=== PATIENT | male | born 1985 | race Caucasian/White ===

== ENCOUNTER 2017-11-12 16:14 | Observation (INO) ==
[2017-11-12] MEDS ORDERED: KETOROLAC 30 MG/ML VIAL IV ONE (16:46)
[2017-11-12] MEDS ORDERED: ONDANSETRON 4 MG/2 ML VIAL IV ONE (16:46)
[2017-11-12] MEDS ORDERED: 0.9 % SODIUM CHLORIDE 2,000 ML IV ONE (16:46)
--- NOTE | 2017-11-12 16:48 | Emergency Department Note ---
General Adult HPI - General Chief complaint: Cold/Flu Symptoms Stated complaint: Cold/flu Time Seen by Provider: 11/12/17 16:16 Source: patient, family Mode of arrival: ambulatory Limitations: no limitations - History of Present Illness HPI Narrative: 32-year-old male with headache and nausea starting today. Tachycardic into the 130s. He is having some left upper quadrant pain going on for the last 2 weeks but it is worse today. He is also having some shortness of breath and nausea but no vomiting. Denies dysuria or difficulty with a bowel movement. Also notes sore throat initially came in with a temperature 99.6 but while waiting for his exam he suddenly became diaphoretic pale and temperature spike to 102.5. Denies sick exposure. Notes some sore throat - Related Data Home Medications Medication Instructions Recorded Confirmed No Known Home Meds [No Known Home 11/12/17 11/12/17 Meds] Allergies Allergy/AdvReac Type Severity Reaction Status Date / Time bee venom protein (honey bee) Allergy Intermediate Swelling Verified 11/12/17 16 :14 acetaminophen [From Vicodin] Allergy Unknown Unknown Verified 11/12/17 16:14 hydrocodone [From Vicodin] Allergy Unknown Unknown Verified 11/12/17 16:14 Review of Systems All systems ED: reviewed and negative except as stated. Past Medical History - Past Medical History Attestation: Yes: The following information was validated with the patient. Medical history: Reports: hypertension Surgical history ED: Reports: cholecystectomy, orthopedic, other (Knee) - Social History smoking status: Never smoker Alcohol use: Reports: Unknown Drug use: Reports: unknown Physical Exam Diaphoretic ill-appearing male. Normocephalic atraumatic. Conjunctive are clear sclerae white and nonicteric. No nasal discharge or congestion. Oropharynx is pink and moist. Posterior pharynx is clear. Tonsils appear normal +2 bilaterally. No exudate. Neck is supple and nontender without lymphadenopathy thyromegaly. Heart is regular rhythm but tachycardic. Lungs are clear to auscultation bilaterally without wheezes rales or respiratory distress. Abdomen is soft nontender-there is palpation of his left abdomen does not reproduce the pain that he is feeling. No rigidity or guarding. No pedal edema. +2 radial pulse. Alert oriented able to answer questions Limitations: no limitations Course Vital Signs Temperature 99.6 F H 11/12/17 16:14 Pulse Rate 130 H 11/12/17 16:14 Respiratory Rate 20 11/12/17 16:14 Blood Pressure 140/76 11/12/17 16:14 Pulse Oximetry (%) 96 11/12/17 16:14 Temperature 99.4 F H 11/12/17 19:22 Pulse Rate 90 11/12/17 19:02 Respiratory Rate 19 11/12/17 18:01 Blood Pressure 133/89 11/12/17 19:02 Pulse Oximetry (%) 96 11/12/17 19:02 Medical Decision Making - Lab Data Lab results reviewed: Yes I reviewed the patient's lab results. Result diagrams: 11/12/17 16:55 11/12/17 16:54 Lab Results 11/12/17 11/12/17 11/12/17 Range/Units 16:54 16:54 16:55 WBC 11.6 H (4.5-11.0) K/mcL RBC 5.14 (4.50-5.90) M/mcL Hgb 14.9 (13.5-16.5) g/dL Hct 43.7 (41.0-55.0) % POC Hct 43.0 (41.0-55.0) % MCV 85.1 (80.0-100.0) fL MCH 29.1 (26.0-34.0) pg MCHC 34.2 (31.0-36.0) g/dL RDW 13.2 (11.5-14.5) % Plt Count 216 (140-440) K/mcL MPV 9.4 (7.4-10.4) fL Gran % 70.7 (38.0-78.0) % Lymph % (Auto) 15.5 (15.5-49.0) % [place] % (Auto) 13.0 H (1.0-12.0) % Eos % (Auto) 0.5 (0.0-7.0) % Baso % (Auto) 0.3 (0.0-2.0) % Gran # 8.2 H (1.8-8.0) K/mcL Lymph # (Auto) 1.8 (1.5-4.8) K/mcL [place] # (Auto) 1.5 H (0.1-0.9) K/mcL Eos # (Auto) 0.1 (0.0-0.7) K/mcL Baso # (Auto) 0 (0.0-0.3) K/mcL VBG Lactic Acid 1.3 (0.5-2.2) mmol/L POC Sodium 137 (133-145) mmol/L Sodium 135 (133-145) mmol/L POC Potassium 3.5 (3.3-5.1) mmol/L Potassium 3.6 (3.3-5.1) mmol/L POC Chloride 103 (96-108) mmol/L Chloride 99 (96-108) mmol/L Carbon Dioxide 21 L (22-30) mmol/L POC Total CO2 24 (22-30) mmol/L Anion Gap 15.0 (8-16) POC BUN 16 (6-20) mg/dl BUN 14 (6-20) mg/dl Creatinine 1.0 (0.7-1.2) mg/dl POC Creatinine 1.0 (0.7-1.2) mg/dl GFR Calculation 98 Glucose 89 (70-105) mg/dL POC Glucose 95 (70-105) mg/dL Calcium 9.3 (8.6-10.4) mg/dl POC WB Ioniz Calcium 1.05 L (1.16-1.32) mmol/L Total Bilirubin 0.9 (0.0-1.0) mg/dL AST 36 (0-37) U/l ALT 65 H (0-40) U/l Alkaline Phosphatase 65 (39-117) U/L Total Protein 7.6 (5.9-8.4) gm/dL Albumin 4.6 (3.2-5.2) gm/dL Globulin 3.0 (2.2-3.7) gm/dL Albumin/Globulin Ratio 1.5 (1.0-2.3) Amylase 27 L (28-100) U/L Lipase 39 (7-60) U/L - Radiology Data Radiology results reviewed: Yes I reviewed the patient's radiology results. CT scan of the abdomen pelvis with contrast shows focal colitis versus diverticulitis distal sigmoid Disposition Pt seen by MISSIONARY COORDINATOR/PA only: No Clinical Impression: Diverticulitis Summary: Patient is ill-appearing and febrile with tachycardia. Concern for Sirs versus sepsis. Because of his complaint of left-sided abdominal pain we will start with laboratory blood cultures and CT scan. Treatment started with morphine Zofran and IV fluids. Zosyn is ordered He is feeling better after fluids pain medicine and antibiotics. However I am concerned with the high fever and diaphoresis I discussed his situation with Dr. Rakesh Hussein, general surgeon. He agreed to accept patient for inpatient care and surgical evaluation. I will write holding orders continuing the Zosyn, IV fluids, pain management. Disposition: Xfer As Inpt ([facility]) Condition: Fair Referrals: Dorothy Oro ARNP [Primary Care Provider] -
[2017-11-12] MEDS ORDERED: PIPERACILLIN SODIUM/TAZOBACTAM 3.375 GM in DEXTROSE 5% IN WATER 50 ML IV SCH ×2 (17:00→19:45)
[2017-11-12 17:53] LABS: Basophils # (Auto) 0 K/mcL (0.0-0.3); Basophils % (Auto) 0.3 % (0.0-2.0); Eosinophils # (Auto) 0.1 K/mcL (0.0-0.7); Eosinophils % (Auto) 0.5 % (0.0-7.0); Granulocytes % (Auto) 70.7 % (38.0-78.0); Lymphocytes # (Auto) 1.8 K/mcL (1.5-4.8); Lymphocytes % (Auto) 15.5 % (15.5-49.0); Mean Cell Volume 85.1 fL (80.0-100.0); Mean Corpuscular HGB Conc 34.2 g/dL (31.0-36.0); Mean Corpuscular Hemoglobin 29.1 pg (26.0-34.0); Monocytes # (Auto) 1.5 K/mcL (0.1-0.9); Platelet Count 216 K/mcL (140-440); RBC 5.14 M/mcL (4.50-5.90); Red Cell Distribution Width 13.2 % (11.5-14.5)
[2017-11-12 18:10] LABS: ALT/SGPT 65 U/l (0-40); Albumin 4.6 gm/dL (3.2-5.2); Albumin/Globulin Ratio 1.5 (1.0-2.3); Alkaline Phosphatase 65 U/L (39-117); Amylase 27 U/L (28-100); Blood Urea Nitrogen 14 mg/dl (6-20); Lipase 39 U/L (7-60)
--- NOTE | 2017-11-12 19:00 | Cat Scan Report ---
CLINICAL INFORMATION: Left upper quadrant pain COMPARISON: None. TECHNIQUE: Following enteric contrast, 80 cc of Isovue-300 were injected intravenously, and 60 seconds later, 0.625 mm helical slices were obtained from the mid heart through the subtrochanteric regions. Following reconstruction, 2.5 mm sagittal, coronal and axial reformatted images were processed and reviewed at bone, lung and soft tissue windows. Five minutes later, 0.625 mm helical slices were obtained from the mid heart through the kidneys and viewed at soft tissue windows.The exam was performed using radiation dose optimization techniques including, but not limited to, automated exposure control, adjustment of the mA and/or kV according to patient size and use of iterative reconstruction technique. FINDINGS: Lung bases show no abnormality. No effusion. The visualized heart is normal.[id number] Images should the abdomen show the gallbladder is surgically absent. Intrahepatic and common bile ducts are normal CBD is 5 mm. The liver, both kidneys, adrenal glands, spleen, pancreas and aorta including aortic branches are normal in size configuration and attenuation without focal lesion. Images should the pelvis show prostate, seminal vesicles and urinary bladder are normal. There is a 3 cm short segment of descending left colon which demonstrates mild inflammation in the pericolonic fat. The colon is collapsed in this region: there is only minimal wall thickening No definite focal diverticuli. The remainder of the colon, appendix small bowel and stomach are normal. Bone windows show no osseous abnormality IMPRESSION: Mild inflammatory changes confined to a very short segment of the distal left colon. This could represent focal colitis or focal diverticulitis. It does correspond to the location of pain Interpreted and Authenticated by: Cory Celaya 11/12/17
[2017-11-12] MEDS ORDERED: PROMETHAZINE 25 MG/ML VIAL IM PRN (19:31)
[2017-11-12] MEDS ORDERED: ONDANSETRON 4 MG/2 ML VIAL IV PRN (19:31)
[2017-11-12] MEDS ORDERED: IBUPROFEN 600 MG TABLET PO PRN (19:34)
[2017-11-12] MEDS: LACTATED RINGERS 1,000 ML IV SCH (20:55)
[2017-11-12] MEDS: PIPERACILLIN SODIUM/TAZOBACTAM 3.375 GM in DEXTROSE 5% IN WATER 50 ML IV SCH (23:15)
[2017-11-13] MEDS: LACTATED RINGERS 1,000 ML IV SCH ×4 (03:37→22:47)
[2017-11-13] MEDS: PIPERACILLIN SODIUM/TAZOBACTAM 3.375 GM in DEXTROSE 5% IN WATER 50 ML IV SCH ×3 (08:34→22:13)
[2017-11-13] MEDS ORDERED: oxyCODONE HCL 5 MG TABLET PO PRN (13:21)
[2017-11-13] MEDS ORDERED: LORazepam 2 MG/ML VIAL IV PRN (13:21)
--- NOTE | 2017-11-13 13:50 | General Surg History&Physical ---
History of Present Illness Patient information: Note initiated : 11/13/17 at 1:47 pm Service Date, if different from initiated Date: [11/12/17] Patient: Sanjiv Dickinson a 32 y/o M admitted on 11/12/17 for Cold/flu. Chief Complaint: [32-year-old male who is admitted with severe abdominal pain with nausea and fever. The patient states that he has had left upper quadrant pain for 2 weeks which was rather mild. On yesterday he developed severe pain in his left upper quadrant which radiated across his abdomen. He had nausea but no vomiting. He had flatus but no bowel movement. He denied rectal bleeding.. There is a reported temperature of 102.2 in the emergency room but this is not recorded. The patient had mild leukocytosis of 11,000. He has not had similar episodes in the past. Patient is admitted and will be followed closely.. He feels better now. CT scan suggests limited segmental colitis in the distal sigmoid colon but my review of his does not reveal any significant changes in the area of concern.] HPI: Mr. Dickinson is a 32 year old M Review of Systems - Constitutional chills, fatigue, malaise, snoring - EENT Nose, mouth and throat: no mouth lesions, no sinus pain, no sore throat - Cardiovascular no chest pain at rest, no diaphoresis, no palpatations, no rapid heart rate - Respiratory snoring, no wheezing, no stridor, no chest congestion, no pain with cough - Gastrointestinal abdominal pain, cramping, heartburn, nausea, no vomiting - Genitourinary no difficulty urinating, no dysuria, no urinary hesitancy, no urinary incontinence, no urinary urgency - Musculoskeletal arthralgias, myalgias - Integumentary no changing lesions, no new lesions, no pruritus, no rash - Neurological no abnormal hearing, no confusion, no convulsions, no dizziness, no headache(s) , no numbness, no tingling, no tremor(s), no vertigo - Psychiatric no anxiety, no depression, no paranoia - Endocrine fatigue, no palpitations - Hematologic/Lymphatic no easy bleeding, no easy bruising, no lymphadenopathy - Allergic/Immunologic no tongue swelling, no throat swelling, no uticaria, no wheezing, no lip swelling Past History Past medical history: Gastroesophageal reflux disease Hypertension Prior history of pancreatitis Past surgical history: Left knee meniscectomy Cholecystectomy Past family history: Hypertension Coronary artery disease Diabetes mellitus Lung cancer Past social history: Employed Never smoker Occasional alcohol use Denies drug use Medications and Allergies Home Medications Medication Instructions Recorded Confirmed Type No Known Home Meds [No Known Home 11/12/17 11/12/17 History Meds] Allergies Allergy/AdvReac Type Severity Reaction Status Date / Time bee venom protein (honey bee) Allergy Intermediate Swelling Verified 11/12/17 16 :14 acetaminophen [From Vicodin] Allergy Unknown Unknown Verified 11/12/17 16:14 hydrocodone [From Vicodin] Allergy Unknown Unknown Verified 11/12/17 16:14 Exam Temp Pulse Resp BP Pulse Ox 98.7 F 82 18 134/89 95 11/13/17 12:00 11/13/17 12:00 11/13/17 12:00 11/13/17 12:00 11/13/17 12:00 - General physical appearance well developed, well nourished, no distress - Eyes PERRL, normal ocular movement - ENT normal pinna, normal nares, normal mucosa, no hearing loss, no congestion - Head Head exam IM: Present: atraumatic, normocephalic - Neck no masses, no bruits, trachea midline, no lymphadectomy, no venous distension - Cardiovascular Cardiovascular exam IM: Present: normal rate and rhythm - Respiratory normal expansion, normal respiratory effort, clear to percussion, clear to auscultation - Abdomen Abdomen: Present: soft, non tender (abdomen is distended but soft with active bowel sounds there is no tenderness to palpation anywhere in his abdomen.), bowel sounds. Absent: masses, guarding Hernia: Present: none - Genitourinary Present: normal penis with no external lesions - Integumentary Present: no rash, no growths, no abnormal pigmentation - Neurologic Present: normal coordination, normal sensation - Musculoskeletal Present: normal gait, normal posture - Psychiatric Present: oriented to time, oriented to person, oriented to place, speech is normal, memory intact Assessment and Plan (1) Acute abdominal pain in left upper quadrant Dicyclomine 20 mg 4 times daily Status: Acute (2) Segmental colitis Zosyn 3.375 g IV every 6 hours Status: Acute (3) Constipation by delayed colonic transit MiraLAX 4 doses Status: Acute
[2017-11-13] MEDS ORDERED: DICYCLOMINE 20 MG TABLET PO SCH (14:00)
[2017-11-13] MEDS: POLYETHYLENE GLYCOL 3350 17 GM PACKET PO SCH ×2 (14:35→20:57)
[2017-11-13 14:40] LABS: Basophils # (Auto) 0 K/mcL (0.0-0.3); Basophils % (Auto) 0.5 % (0.0-2.0); Eosinophils # (Auto) 0.1 K/mcL (0.0-0.7); Eosinophils % (Auto) 0.9 % (0.0-7.0); Granulocytes % (Auto) 62.8 % (38.0-78.0); Lipase 36 U/L (7-60); Lymphocytes # (Auto) 1.5 K/mcL (1.5-4.8); Lymphocytes % (Auto) 21.3 % (15.5-49.0); Mean Corpuscular HGB Conc 34.6 g/dL (31.0-36.0); Mean Corpuscular Hemoglobin 29.8 pg (26.0-34.0); Monocytes % (Auto) 14.5 % (1.0-12.0); Platelet Count 184 K/mcL (140-440); RBC 4.57 M/mcL (4.50-5.90); Red Cell Distribution Width 13.4 % (11.5-14.5)
[2017-11-13 14:47] LABS: ALT/SGPT 49 U/l (0-40); Albumin/Globulin Ratio 1.5 (1.0-2.3); Alkaline Phosphatase 56 U/L (39-117); Bilirubin,Direct < 0.2 mg/dL (0.0-0.3); Blood Urea Nitrogen 13 mg/dl (6-20); Gamma Glutamyl Transpeptidase 32 U/L (8-61); Uric Acid 7.4 mg/dL (2.5-8.0)
[2017-11-13 15:21] LABS: Erythrocyte Sedimentation Rate 16 mm/hr (0-15)
[2017-11-13] MEDS: PANTOPRAZOLE 40 MG VIAL IV SCH (16:10)
[2017-11-13] MEDS: DICYCLOMINE 20 MG TABLET PO SCH (20:57)
[2017-11-14] MEDS: POLYETHYLENE GLYCOL 3350 17 GM PACKET PO SCH (01:28)
[2017-11-14] MEDS: PIPERACILLIN SODIUM/TAZOBACTAM 3.375 GM in DEXTROSE 5% IN WATER 50 ML IV SCH (05:26)
[2017-11-14] MEDS: LACTATED RINGERS 1,000 ML IV SCH (05:31)
[2017-11-14 05:39] LABS: Basophils # (Auto) 0 K/mcL (0.0-0.3); Basophils % (Auto) 0.5 % (0.0-2.0); Eosinophils # (Auto) 0.2 K/mcL (0.0-0.7); Eosinophils % (Auto) 2.8 % (0.0-7.0); Granulocytes % (Auto) 57.5 % (38.0-78.0); Lymphocytes # (Auto) 1.6 K/mcL (1.5-4.8); Lymphocytes % (Auto) 26.8 % (15.5-49.0); Mean Cell Volume 85.8 fL (80.0-100.0); Mean Corpuscular HGB Conc 34.5 g/dL (31.0-36.0); Mean Corpuscular Hemoglobin 29.6 pg (26.0-34.0); Monocytes # (Auto) 0.7 K/mcL (0.1-0.9); Monocytes % (Auto) 12.4 % (1.0-12.0); Platelet Count 179 K/mcL (140-440); Red Cell Distribution Width 13.5 % (11.5-14.5)
[2017-11-14 06:10] LABS: ALT/SGPT 47 U/l (0-40); Albumin 3.9 gm/dL (3.2-5.2); Albumin/Globulin Ratio 1.6 (1.0-2.3); Alkaline Phosphatase 56 U/L (39-117); Bilirubin,Direct < 0.2 mg/dL (0.0-0.3); Blood Urea Nitrogen 10 mg/dl (6-20); Gamma Glutamyl Transpeptidase 33 U/L (8-61); Uric Acid 7.1 mg/dL (2.5-8.0)
[2017-11-14] MEDS: PANTOPRAZOLE 40 MG VIAL IV SCH (07:22)
[2017-11-14] MEDS: DICYCLOMINE 20 MG TABLET PO SCH ×2 (09:09→13:37)
--- NOTE | 2017-11-14 12:19 | Discharge Summary ---
Providers - Providers Patient information: Note initiated : 11/14/17 at 12:17 pm Service Date, if different from initiated Date: [] Patient: Sanjiv Dickinson 32 y/o M admitted on 11/12/17 for Cold/flu. Chief Complaint: [] Date of admission: 11/12/17 Discharge date: 11/14/17 Attending physician: Arianne Hussein Hospitalization Hospital course: 32-year-old male who presents with a one-day history of left upper quadrant upper abdominal pain with associated nausea. The pain increased in severity and he was seen in the emergency room. He was noted to have a low-grade temperature and left-sided abdominal pain. White count was 11,000. CT of the abdomen showed limited segmental colitis left colon. He was admitted and started on antibiotics. He had exacerbation of pain that was controlled with analgesics. His white blood count returned to normal. Today he is relatively asymptomatic and is stable to be discharged home on oral medications. Discharge diagnosis: segmental left colitis Reason for admission: severe abdominal pain with leukocytosis Pertinent studies/significant findings: CT of abdomen and pelvis with contrast Complications: none Exam Temp Pulse Resp BP Pulse Ox 97.4 F 74 18 144/88 96 11/14/17 11:16 11/14/17 03:00 11/14/17 11:16 11/14/17 11:16 11/14/17 11:16 - General physical appearance well developed, well nourished, no distress, no pain, obese - Eyes PERRL, normal ocular movement - ENT normal pinna, normal nares, normal mucosa, no hearing loss, no congestion - Head Head exam IM: Present: atraumatic, normocephalic - Neck no masses, no bruits, trachea midline, no lymphadectomy, no venous distension - Cardiovascular Cardiovascular exam IM: Present: normal rate and rhythm - Respiratory normal expansion, normal respiratory effort, clear to percussion, clear to auscultation - Abdomen Abdomen: Present: soft, non tender, bowel sounds Hernia: Present: none - Genitourinary Present: normal penis with no external lesions - Integumentary Present: no rash, no growths, no abnormal pigmentation - Neurologic Present: normal coordination, normal sensation - Musculoskeletal Present: normal gait, normal posture - Psychiatric Present: oriented to time, oriented to person, oriented to place, speech is normal, memory intact Discharge Plan - Patient/Caregiver Discharge Instructions Activity: increase activity as tolerated Diet: Full Liquid Additional Instructions: Full liquid diet 3 days then advance to regular diet Office follow-up in one week Prescriptions: Ciprofloxacin [Cipro] 500 mg PO DAILY #20 tab Dicyclomine 20 mg PO QID #30 tab metroNIDAZOLE [Flagyl] 500 mg PO TID #30 tab oxyCODONE HCL [Roxicodone] 10 mg PO Q4HP PRN #30 tab PRN Reason: Pain Level 3-6 - Follow up Plan Follow up with: Dorothy Oro ARNP [Primary Care Provider] - Disposition: Home, Self-Care Prognosis: Good Rehab Potential: Good I certify that the patient requires SNF services.: No Overall status at discharge: patient is not back to baseline Pending Studies Resuscitation Status Full Code Diet Full Liquid Diet Start TueNov 14 [id number] Dicyclomine HCl (Dicyclomine) 20 mg PO QID [facility] Last Admin: 11/14/17 09:09 Dose: 20 mg Admin: 11/13/17 20:57 Dose: 20 mg Lactated Ringer's (Lactated Ringers) 1,000 mls @ 150 mls/hr IV .Q6H40M [facility] Last Admin: 11/14/17 05:31 Dose: 150 mls/hr Infusion: 11/14/17 05:28 Dose: 150 mls/hr Admin: 11/13/17 22:47 Dose: 150 mls/hr Infusion: 11/13/17 22:47 Dose: 150 mls/hr Admin: 11/13/17 16:09 Dose: 150 mls/hr Infusion: 11/13/17 16:09 Dose: 150 mls/hr Admin: 11/13/17 10:16 Dose: 150 mls/hr Infusion: 11/13/17 10:16 Dose: 150 mls/hr Admin: 11/13/17 03:37 Dose: 150 mls/hr Infusion: 11/13/17 03:36 Dose: 150 mls/hr Admin: 11/12/17 20:55 Dose: 150 mls/hr Piperacillin Sod/Tazobactam (Sod 3.375 gm/ Dextrose) 50 mls @ 100 mls/hr IV Q8H [facility] Last Admin: 11/14/17 05:26 Dose: 100 mls/hr Infusion: 11/13/17 22:43 Dose: 100 mls/hr Admin: 11/13/17 22:13 Dose: 100 mls/hr Infusion: 11/13/17 16:14 Dose: 100 mls/hr Admin: 11/13/17 14:38 Dose: 100 mls/hr Infusion: 11/13/17 10:17 Dose: 100 mls/hr Admin: 11/13/17 08:34 Dose: 100 mls/hr Infusion: 11/12/17 23:45 Dose: 100 mls/hr Admin: 11/12/17 23:15 Dose: 100 mls/hr Pantoprazole Sodium (Protonix) 40 mg IV BIDAC THEODORE Last Admin: 11/14/17 07:22 Dose: 40 mg Admin: 11/13/17 16:10 Dose: 40 mg Shift Summary 11/14/17 04:23 Shift Summary by Franky Galan OBS patient. Pt has rested fairly well again tonight. No sig. ABD pain this shift - no PRN pain med requested. Very slight nausea on & off - no PRN meds requested. LR @ 150ml/hr infusing to his RT wrist- scheduled IV ATB. He is up AMB in RM (I) - voiding per urinal QS, and had sm form BM after 3x doses Miralax. Tolerating clear liquid diet. VS - WNL on R.A.. No skin issues. He remains calm, pleasant, & cooperative. Initialized on 11/14/17 04:23 - END OF NOTE
== END 2017-11-14 14:21 | disposition home or self-care (01) ==
LOC: MEDSUR 16:14 → ED 16:14 → MEDSUR 20:15
PROVIDERS: ADMIT Family Medicine Adult Medicine; ATTEND Family Medicine Adult Medicine